=== PATIENT | male | born 1960 | race Caucasian/White ===

== ENCOUNTER → 2017-05-16 | Outpatient (CLI) | payer BC ==
[~2017-05-16] MED LIST: ALBUTEROL0.09 MG/A2 IH; BACTRIM DS 8001 TA1 PO; DOXYCYCLINE MO100 MG PO; ROBITUSSIN AC 110 ML PO; VISTARIL50 MG PO
== END | disposition home or self-care (01) ==
LOC: CARD 03:08
DX: I08.3 Combined rheumatic disorders of mitral, aortic and tricuspid valves (principal); I10 Essential (primary) hypertension; R94.31 Abnormal electrocardiogram [ECG] [EKG]

== ENCOUNTER 2019-08-05 05:48 | Emergency (ER) | payer OTHER ==
[~2019-08-05] VITALS: Ht 175.2 cm; Wt 129.7 kg
[2019-08-05 07:08] LABS: BASO % 0.4 % (0.0-1.0); EOS # 0.4 10*3/uL (0.0-0.4); EOS % 3.4 % (1.0-4.0); HEMATOCRIT 36.9 % (42.0-52.0); HEMOGLOBIN 12.4 g/dl (14.0-18.0); LYMPH # 1.8 10*3/uL (1.3-4.4); LYMPH % 17.2 % (27.0-41.0); MEAN CELL VOLUME 86.2 fl (80.0-94.0); MEAN CORPUSCULAR HGB CONC 33.6 g/dl (33.0-37.0); MEAN PLATELET VOLUME 9.5 fl (9.6-12.3); NEUT # 7.1 10*3/uL (2.3-7.9); NEUT % 68.6 % (47.0-73.0); PLATELET COUNT AUTOMATED 281 10*3/uL (130-400); RED BLOOD COUNT 4.28 10*6/uL (4.50-5.90); RED CELL DISTRI WIDTH 13.2 % (0-14.5); WHITE BLOOD COUNT 10.3 10*3/uL (4.8-10.8)
[2019-08-05 07:22] LABS: ALBUMIN 3.1 gm/dl (3.1-4.5); ALKALINE PHOSPHATASE 69 U/L (45-117); BUN 20 mg/dl (7-24); CHLORIDE 104 mmol/L (98-107); POTASSIUM 4.1 mmol/L (3.5-5.1); SGOT/AST 23 IU/L (3-35); SGPT/ALT 38 U/L (12-78); SODIUM 138 mmol/L (136-145); TOTAL PROTEIN 7.4 gm/dL (6.4-8.2)
[2019-08-05] MEDS ORDERED: LASIX20 MG PO (08:52)
== END 2019-08-05 09:16 | disposition home or self-care (01) ==
LOC: ED 05:48
PROVIDERS: Emergency Medicine
DX: G89.18 Other acute postprocedural pain (principal); M54.5 Low back pain; R60.0 Localized edema; E11.9 Type 2 diabetes mellitus without complications; I10 Essential (primary) hypertension; Z88.0 Allergy status to penicillin; Z79.2 Long term (current) use of antibiotics

== ENCOUNTER → 2019-09-02 | Outpatient (CLI) | payer OTHER ==
[~2019-09-02] MED LIST changes: +LASIX20 MG PO
== END | disposition home or self-care (01) ==
LOC: CT 09-01 13:00
DX: R91.1 Solitary pulmonary nodule (principal); I25.10 Atherosclerotic heart disease of native coronary artery without angina pectoris; Z98.890 Other specified postprocedural states

== ENCOUNTER → 2019-09-05 | Outpatient (CLI) | payer OTHER ==
[2019-09-05 12:00] LABS: THYROXINE (T4) TOTAL 9.7 ug/dl (4.5-12.1)
[2019-09-05 12:04] LABS: THYROID STIM HORMONE (HS) 1.4 uIU/ml (0.358-4.75)
== END | disposition home or self-care (01) ==
LOC: LAB 10:56
PROVIDERS: Family Medicine
DX: G62.9 Polyneuropathy, unspecified (principal)

== ENCOUNTER 2020-03-05 16:29 | Emergency (ER) | payer OTHER ==
[~2020-03-05] VITALS: Ht 177.8 cm; Wt 129.3 kg
[2020-03-05] MEDS ORDERED: SEPTDS PO ×3 (18:55→19:30)
[2020-03-05 18:57] LABS: BASO % 0.4 % (0.0-1.0); EOS # 0.2 10*3/uL (0.0-0.4); EOS % 2.5 % (1.0-4.0); HEMATOCRIT 40.8 % (42.0-52.0); LYMPH # 1.7 10*3/uL (1.3-4.4); LYMPH % 21.5 % (27.0-41.0); MEAN CELL VOLUME 85.4 fl (80.0-94.0); MEAN CORPUSCULAR HGB CONC 32.8 g/dl (33.0-37.0); MEAN PLATELET VOLUME 9.1 fl (9.6-12.3); MONO # 0.8 10*3/uL (0.1-1.0); MONO % 10.1 % (3.0-9.0); NEUT % 65.1 % (47.0-73.0); PLATELET COUNT AUTOMATED 310 10*3/uL (130-400); RED BLOOD COUNT 4.78 10*6/uL (4.50-5.90); RED CELL DISTRI WIDTH 13.7 % (0-14.5); WHITE BLOOD COUNT 7.7 10*3/uL (4.8-10.8)
[2020-03-05 19:09] LABS: ACT PARTIAL THROMBO TIME 28.1 SECONDS (20.0-32.1); BUN 21 mg/dl (7-24); CHLORIDE 106 mmol/L (98-107); CREATININE 0.94 mg/dL (0.70-1.30); POTASSIUM 3.9 mmol/L (3.5-5.1); SODIUM 138 mmol/L (136-145)
== END 2020-03-05 18:59 | disposition home or self-care (01) ==
LOC: ED 16:29
PROVIDERS: Emergency Medicine
DX: L03.116 Cellulitis of left lower limb (principal); Z88.0 Allergy status to penicillin

== ENCOUNTER → 2021-01-24 | Outpatient (CLI) | payer OTHER ==
[~2021-01-24] MED LIST changes: +SEPTDS PO
== END | disposition home or self-care (01) ==
LOC: ORTHO 00:18
PROVIDERS: ATTEND Orthopaedic Surgery
DX: M19.031 Primary osteoarthritis, right wrist (principal); M19.032 Primary osteoarthritis, left wrist

== ENCOUNTER → 2021-07-13 | Outpatient (CLI) | payer OTHER | END | disposition home or self-care (01) | LOC: COVID19 16:49 | PROVIDERS: ATTEND Student in an Organized Health Care Education/Training Program | DX: U07.1 COVID-19 (principal) ==

== ENCOUNTER 2022-11-03 08:46 | Emergency (ER) | payer OTHER ==
[~2022-11-03] VITALS: Wt 140.6 kg
[2022-11-03 10:12] LABS: BASO % 0.4 % (0.0-1.0); EOS # 0.1 10*3/uL (0.0-0.4); EOS % 0.5 % (1.0-4.0); HEMATOCRIT 40.9 % (42.0-52.0); LYMPH # 1.1 10*3/uL (1.3-4.4); LYMPH % 11.1 % (27.0-41.0); MEAN CELL VOLUME 86.7 fl (80.0-94.0); MEAN CORPUSCULAR HGB 29.7 pg (27.0-31.0); MEAN CORPUSCULAR HGB CONC 34.2 g/dl (33.0-37.0); MEAN PLATELET VOLUME 10.3 fl (9.6-12.3); MONO # 0.5 10*3/uL (0.1-1.0); MONO % 5.5 % (3.0-9.0); NEUT # 8.1 10*3/uL (2.3-7.9); NEUT % 81.9 % (47.0-73.0); PLATELET COUNT AUTOMATED 220 10*3/uL (130-400); RED BLOOD COUNT 4.72 10*6/uL (4.50-5.90); RED CELL DISTRI WIDTH 13.5 % (0-14.5); WHITE BLOOD COUNT 9.9 10*3/uL (4.8-10.8)
[2022-11-03 10:29] LABS: ACT PARTIAL THROMBO TIME 30.7 SECONDS (20.0-32.1); INTERNATIONAL NORM RATIO 1.1 (2.0-3.5)
[2022-11-03 10:35] LABS: ALKALINE PHOSPHATASE 58 U/L (46-116); BUN 11 mg/dl (9-23); CHLORIDE 99 mmol/L (98-107); POTASSIUM 4.6 mmol/L (3.4-5.1); SGPT/ALT 45 U/L (10-49); TOTAL PROTEIN 6.8 gm/dL (6.0-8.0)
[2022-11-03] MEDS ORDERED: VIBRA-TAB100 MG PO (12:24)
== END 2022-11-03 12:30 | disposition home or self-care (01) ==
LOC: ED 08:46
PROVIDERS: Emergency Medicine
DX: L03.115 Cellulitis of right lower limb (principal); Z88.0 Allergy status to penicillin; Z88.6 Allergy status to analgesic agent

== ENCOUNTER 2024-09-15 10:29 | Emergency (ER) | payer OTHER ==
[~2024-09-15] VITALS: Ht 177.8 cm; Wt 145.1 kg
[~2024-09-15 10:29] MED LIST changes: +VIBRA-TAB100 MG PO
[2024-09-15] MEDS ORDERED: INSULIN LI100 UNIT/2 SQ (10:44)
[2024-09-15] MEDS ORDERED: OZEMPIC1 MG/0.71 SQ (10:44)
[2024-09-15] MEDS ORDERED: LANTUS SOL100 UNIT/1 SC (10:45)
[2024-09-15] MEDS ORDERED: LISINOPRIL40 MG PO (10:45)
[2024-09-15] MEDS ORDERED: ATORVASTATIN CA20 M1 PO (10:45)
[2024-09-15] MEDS ORDERED: TRELEGY ELLIPT1 EACH INH (10:45)
[2024-09-15] MEDS ORDERED: METFORMIN HYDR500 MG PO (10:46)
[2024-09-15] MEDS ORDERED: SODIUM CHLORIDE 0.9% 1,000 ML IV ONE (11:30)
[2024-09-15] MEDS ORDERED: Ondansetron Hydrochloride 4 MG/2 ML VIAL IV ONE (11:30)
[2024-09-15 11:54] LABS: BASO % 0.2 % (0.0-1.0); EOS # 0.1 10*3/uL (0.0-0.4); EOS % 0.9 % (1.0-4.0); HEMATOCRIT 42.2 % (42.0-52.0); MEAN CELL VOLUME 85.3 fl (80.0-94.0); MEAN CORPUSCULAR HGB 28.5 pg (27.0-31.0); MEAN CORPUSCULAR HGB CONC 33.4 g/dl (33.0-37.0); MEAN PLATELET VOLUME 9.2 fl (9.6-12.3); MONO # 0.8 10*3/uL (0.1-1.0); NEUT # 13.3 10*3/uL (2.3-7.9); NEUT % 87.8 % (47.0-73.0); PLATELET COUNT AUTOMATED 310 10*3/uL (130-400); RED BLOOD COUNT 4.95 10*6/uL (4.50-5.90); RED CELL DISTRI WIDTH 13.5 % (0-14.5); WHITE BLOOD COUNT 15.1 10*3/uL (4.8-10.8)
[2024-09-15 12:37] LABS: ALKALINE PHOSPHATASE 60 U/L (46-116); BUN 23 mg/dl (9-23); CHLORIDE 100 mmol/L (98-107); CPK 124 U/L (34-171); POTASSIUM 4.3 mmol/L (3.4-5.1); SGPT/ALT 37 U/L (5-49); TOTAL PROTEIN 7.4 gm/dL (6.0-8.0)
[2024-09-15] MEDS ORDERED: ACETAMINOPHEN 325 MG TAB PO ONE (13:10)
[2024-09-15] MEDS ORDERED: Ketorolac Tromethamine 15 MG/ML VIAL IV ONE (13:55)
[2024-09-15] MEDS ORDERED: VIBRAMYCIN100 MG PO (14:10)
[2024-09-15] MEDS ORDERED: Phenergan25 MG PO (14:10)
[2024-09-15] MEDS ORDERED: Doxycycline Hyclate 100 MG CAP PO ONE (14:15)
== END 2024-09-15 14:17 | disposition home or self-care (01) ==
LOC: ED 10:29
PROVIDERS: Nurse Practitioner Family
DX: K52.9 Noninfective gastroenteritis and colitis, unspecified (principal); J18.9 Pneumonia, unspecified organism; Z20.822 Contact with and (suspected) exposure to COVID-19; Z88.0 Allergy status to penicillin; Z88.6 Allergy status to analgesic agent; Z88.1 Allergy status to other antibiotic agents; Z88.5 Allergy status to narcotic agent; Z96.653 Presence of artificial knee joint, bilateral; Z86.718 Personal history of other venous thrombosis and embolism; Z98.890 Other specified postprocedural states